=== PATIENT | female | born 1975 | race Caucasian/White ===

== ENCOUNTER → 2017-03-28 | Outpatient (CLI) | payer MEDICARE, OTHER ==
[~2017-03-28] MED LIST: ACETAMINOPHEN500 M2 PO; ACID REDUCER150 MG PO; ANTI-FUNGAL15 GM TP; ANTIVERT PO; ASPIRIN BUFFER325 M2 PO; ASPIRIN PO; ATENOLOL PO; BACTRIM DS TABL1 TA1 PO; BACTRIM DS TABL1 TAB PO; BIRTH CONTROL; BIRTH CONTROL PILL PO; CARDIZEM SR PO; CARTIA XT240 M1 PO; CELEXA PO; CLARITIN10 M2 PO; CLARITIN10 MG PO; CYMBALTA PO; DILTIAZEM ER240 M2 PO; FLEXERIL10 MG PO; FLONASE 0.05% N16 G1; HYDROCODON-ACE1 EAC7 PO; LEVOTHROID125 MCG PO; LIPITOR PO; LIPITOR40 MG PO; METROGEL-VAGINA70 GM VG; MOTRIN400 MG PO; MOTRIN600 MG PO; MULTI VITAMIN1 EACH PO; NAPROSYN500 MG PO; NO MEDICATIONS; ORUDIS75 M1 DOB; PROTONIX PO; SYNTHROID PO; SYNTHROID88 MCG PO; VICODIN 5/500 T1 TAB PO; WELLBUTRIN PO; ZANTAC PO
--- NOTE | ~2017-03-28 | CR169 ---
[facility] A [facility] RADIOLOGY TEXT RESULTS PATIENT: RAMSEY CHASE LOCATION: [facility] : 71 UNIT #: [id number] AGE: [address]: ASIA LOPEZ APRN SEX: F ORDER DR: [id number] [facility] [address] [place], [place] [address] [id number] O MR#: [id number] Acc #: [id number] NAME: RAMSEY CHASE : 1975 SEX: F STUDY DATE/TIME: 03/28/2017 12:32 UNIT: [facility] ROOM: STUDY DESCRIPTION: CR Knee 2 Views Lt Attending Physician: Asia Lopez Aprn Referring Physician: Asia Lopez Aprn Ordering Physician: Asia Lopez Aprn Primary Care Physician: Glenn Griffith M.D. MEDICAL IMAGING REPORT This report is preliminary unless electronic signature is present EXAM Left knee HISTORY Knee pain over the past 2 months with no known trauma TECHNIQUE 2 views of knee were obtained. FINDINGS Small osteophytes are seen at the upper and lower patellar pole and there is cortical irregularity along the patellar undersurface. There is a small joint effusion. Minimal joint space narrowing is seen in the medial and lateral compartments. There is a small calcification seen along the medial joint line likely representing a chronic ligamentous calcification. No osteochondral fragments or intraarticular loose bodies are seen. IMPRESSION Moderate patellofemoral joint arthrosis with milder degenerative changes in the medial and lateral compartment. Small focus of chronic calcification medially likely representing chronic ligamentous calcification. These changes are accompanied by a small joint effusion. Dictated by... Jonas Whiting M.D. THIS IS AN ELECTRONICALLY VERIFIED REPORT Jonas Whiting M.D. at 03/28/2017 6:20 PM RLF/kandyr TD: 03/28/2017 13:26 JOB #: [id number] [facility] A [facility] RADIOLOGY TEXT RESULTS PATIENT: RAMSEY CHASE LOCATION: [facility] #: [id number] : 71 UNIT #: [id number] AGE: [address]: ASIA LOPEZ APRN SEX: F ORDER DR: MEDICAL IMAGING REPORT Page 1 of 1 COPY
--- NOTE | ~2017-03-28 | CR170 ---
[facility] A Service of [facility] RADIOLOGY TEXT RESULTS PATIENT: RAMSEY CHASE LOCATION: [facility] : 71 UNIT #: [id number] AGE: [address]: ASIA LOPEZ APRN SEX: F ORDER DR: [id number] [facility] [address] [place], [place] [address] [id number] O MR#: [id number] Acc #: [id number] NAME: RAMSEY CHASE : 1975 SEX: F STUDY DATE/TIME: 03/28/2017 12:32 UNIT: [facility] ROOM: STUDY DESCRIPTION: CR Knee 2 Views Rt Attending Physician: Asia Lopez Aprn Referring Physician: Asia Lopez Aprn Ordering Physician: Asia Lopez Aprn Primary Care Physician: Glenn Griffith M.D. MEDICAL IMAGING REPORT This report is preliminary unless electronic signature is present EXAM Right knee HISTORY Knee pain for the past 2 months with no known trauma. TECHNIQUE 2 views of the knee were obtained. FINDINGS Small osteophytes are seen at the upper and lower patellar pole. There is a small osteophyte along the lateral tibial plateau. There is mild joint space narrowing both medially and laterally. There is no evidence of fracture, osteochondral fragment or effusion. IMPRESSION Mild degenerative changes predominantly involving the lateral compartment and patellofemoral joint with minimal medial compartment joint space narrowing as well. Dictated by... Jonas Whiting M.D. THIS IS AN ELECTRONICALLY VERIFIED REPORT Jonas Whiting M.D. at 03/28/2017 6:20 PM JUHI/ozzie TD: 03/28/2017 13:15 JOB #: [id number] MEDICAL IMAGING REPORT Page 1 of 1 COPY
== END | disposition home or self-care (01) ==
LOC: CRAD 12:20
DX: M25.561 Pain in right knee (principal); M25.562 Pain in left knee; M25.461 Effusion, right knee
CPT/HCPCS: 73560

== ENCOUNTER 2017-04-20 16:44 | Emergency (ER) | payer MEDICARE, OTHER ==
--- NOTE | ~2017-04-20 | CT52 ---
[facility] A Service of [facility] & [facility] RADIOLOGY TEXT RESULTS PATIENT: RAMSEY CHASE LOCATION: [place] : 71 UNIT #: [id number] AGE: [address]: Maria Alejandra Oconnell APRN SEX: F ORDER DR: [id number] [facility] [address] [place], [place] [address] [id number] E MR#: [id number] Acc #: [id number] NAME: RAMSEY CHASE : 1975 SEX: F STUDY DATE/TIME: 04/20/2017 19:23 UNIT: [facility] ROOM: STUDY DESCRIPTION: CT Cervical Spine Wo Cont Attending Physician: Maria Alejandra Oconnell A.P.R.N. Ordering Physician: Maria Alejandra Oconnell A.P.R.N. Primary Care Physician: Glenn Griffith M.D. MEDICAL IMAGING REPORT This report is preliminary unless electronic signature is present EXAM CT of the cervical spine without contrast dated 04/20/2017. COMPARISON CT C-spine without contrast dated 08/31/2011 HISTORY Neck surgery dated 01/18/2017. When patient was washing dishes, she felt burning pain in the back of the neck on 04/20/2017. Pain radiates down the arms. FINDINGS CT of the C-spine was obtained without contrast in the axial plane followed by sagittal and coronal reformats. This CT exam was performed with one or more of the following radiation dose reduction techniques: automatic control, adjustment of mA and/or kV according to patient size, and iterative reconstruction. No acute fracture or subluxation. Postoperative changes are noted. There is anterior cervical fusion from C5-C7. Posterior decompression is noted from the level of C3-4 to the level of C6-7 with removal of the spinous process in between. There are screws extending to the lateral mass on both sides and these levels with stabilization rods. Postoperative significant changes are noted without any obvious superimposed acute fracture. Inflammatory soft tissue is noted in the postoperative bed along the posterior decompression. It is difficult to discern and there are small fluid collections along the inflammatory soft tissue. Streak artifact from hardware limits evaluation. There are some facet hypertrophic changes at multiple levels. Mild neural foraminal encroachment is seen in some of the levels without any severe nerve impingement. The posterior decompression is new when compared to the previous CT from 2010. IMPRESSION 1. Previously noted postoperative changes with anterior fusion and STS. [facility] A Service of [facility] & [facility] RADIOLOGY TEXT RESULTS PATIENT: RAMSEY CHASE LOCATION: [facility] : 71 UNIT #: [id number] AGE: [address]: Maria Alejandra Oconnell APRN SEX: F ORDER DR: hardware are noted from the level of C5-C7, stable. 2. Interval new posterior decompression and fusion are noted from the level of C3-4 to the level of C6-7. Associated inflammatory changes are noted with postoperative granulation tissue. Small amount of postoperative fluid collection cannot be excluded in this region. There are lateral mass screws and stabilization rods noted to extend from C3 to C7 with posterior decompression from C4-C6. Correlate with postoperative note. There are inflammatory changes with probably a small fluid collections in between. No drainable large fluid fluid collection is seen. Evaluation of this region is limited due to streak artifact. 3. Mild facet hypertrophic changes are noted with some neural foraminal narrowing in some other levels, mild. Canal is now widely patent post surgically. No superimposed acute displaced fracture or subluxation. 4. Evaluation of cord is limited in this study and modality. Dictated by... Abhishek Torres M.D. THIS IS AN ELECTRONICALLY VERIFIED REPORT Abhishek Torres M.D. at 04/23/2017 5:06 PM CPR/rnr TD: 04/20/2017 23:25 JOB #: [id number] MEDICAL IMAGING REPORT Page 1 of 1 COPY
== END 2017-04-20 21:05 | disposition home or self-care (01) ==
LOC: CFTX 16:44 → CED 16:44 → CFTX 20:54
DX: S16.1XXA Strain of muscle, fascia and tendon at neck level, initial encounter (principal); K21.9 Gastro-esophageal reflux disease without esophagitis; E78.5 Hyperlipidemia, unspecified; E07.9 Disorder of thyroid, unspecified; F32.9 Major depressive disorder, single episode, unspecified; Z98.890 Other specified postprocedural states; Z88.2 Allergy status to sulfonamides; Z88.8 Allergy status to other drugs, medicaments and biological substances; Z88.1 Allergy status to other antibiotic agents; X58.XXXA Exposure to other specified factors, initial encounter; Y92.009 Unspecified place in unspecified non-institutional (private) residence as the place of occurrence of the external cause
CPT/HCPCS: 72125; 96372; 99284; J1885

== ENCOUNTER 2017-05-30 18:23 | Emergency (ER) | payer MEDICARE, OTHER | END 2017-05-30 19:45 | disposition home or self-care (01) | LOC: CED 18:23 → CFTX 18:23 | DX: S39.012A Strain of muscle, fascia and tendon of lower back, initial encounter (principal); I10 Essential (primary) hypertension; K21.9 Gastro-esophageal reflux disease without esophagitis; E78.5 Hyperlipidemia, unspecified; Z88.2 Allergy status to sulfonamides; Z88.8 Allergy status to other drugs, medicaments and biological substances; X58.XXXA Exposure to other specified factors, initial encounter | CPT/HCPCS: 96372; 99283; J1885 ==